=== PATIENT | female | born 1960 | race Two or more races ===

== ENCOUNTER 2016-12-24 21:04 | Emergency (ER) | payer MEDICAID ==
[2016-12-24 21:15] VITALS: BP 152/88
== END 2016-12-25 01:00 | disposition home or self-care (01) ==
LOC: ED 21:04
DX: S81.812A Laceration without foreign body, left lower leg, initial encounter (principal); S90.31XA Contusion of right foot, initial encounter; S80.812A Abrasion, left lower leg, initial encounter; S80.811A Abrasion, right lower leg, initial encounter; I10 Essential (primary) hypertension; E11.9 Type 2 diabetes mellitus without complications; Z88.0 Allergy status to penicillin; W01.10XA Fall on same level from slipping, tripping and stumbling with subsequent striking against unspecified object, initial encounter; Y93.89 Activity, other specified; Y92.89 Other specified places as the place of occurrence of the external cause; Y99.8 Other external cause status
CPT/HCPCS: 90715; J2001

== ENCOUNTER 2018-06-10 17:34 | Inpatient (IN) | payer MEDICAID ==
[~2018-06-10] VITALS: Ht 154.9 cm; Wt 50.0 kg
[2018-06-10 17:45] VITALS: Ht 154.9 cm; Wt 50.0 kg
[2018-06-10 21:07] LABS: BASOPHIL % 0.2 % (0-2); PLATELET COUNT 246 x10^3mcL (130-400); RED CELL DISTRIBUTION WIDTH 12.1 % (11.5-14.5)
[2018-06-10 21:14] LABS: CALCIUM 8.7 mg/dL (8.5-10.1); CARBON DIOXIDE 27.3 mmol/L (21-32); CHLORIDE SERUM 100 mmol/L (98-107); CREATININE SERUM 0.8 mg/dL (0.6-1.0); GFR1 > 60 mL/min; GLUCOSE SERUM 192 mg/dL (74-106); POTASSIUM SERUM 3.5 mmol/L (3.5-5.1); SODIUM SERUM 137 mmol/L (136-145)
[2018-06-10 21:19] LABS: ALKALINE PHOSPHATASE 95 U/L (46-116); ALT/SGPT 39 U/L (14-59); AST/SGOT 23 U/L (15-37); BILIRUBIN TOTAL 0.51 mg/dL (0.20-1.00); TOTAL PROTEIN, SERUM 7.7 g/dL (6.4-8.2)
[2018-06-10 21:58] LABS: microscopic required? NO
[2018-06-10 22:14] LABS: UA SPECIFIC GRAVITY 1.015 (1.005-1.035); urine erythrocyte NEGATIVE (NEGATIVE)
[2018-06-10 22:32] LABS: AMPHETAMINE QUAL UR NONE DETECTED (See below)
[2018-06-10 22:41] VITALS: BP 136/70
[2018-06-10 23:19] LABS: FREE T4 1.19 ng/dL (0.76-1.46); FREE THYROXINE INDEX 3.7 ug/dL (1.4-4.5); T4(THYROXINE) 10.7 ug/dL (4.7-13.3)
[2018-06-10 23:23] LABS: T3 TOTAL 0.9 ng/mL
[2018-06-10 23:26] LABS: CHOLESTEROL/HDL RATIO 3.3; MAGNESIUM 1.8 mg/dL (1.8-2.4); PHOSPHOROUS 3.4 mg/dL (2.5-4.9)
[2018-06-11] MEDS ORDERED: BENAZEPRIL HCL/1 TAB (02:31)
[2018-06-11] MEDS ORDERED: METFORMIN HCL500 MG PO (02:32)
[2018-06-11] MEDS ORDERED: GLUCOTROL10 MG PO (02:32)
[2018-06-11] MEDS ORDERED: PRAVASTATIN SOD10 M1 PO (02:32)
[2018-06-11 05:53] VITALS: BP 112/67
[2018-06-11 06:39] LABS: BASOPHIL % 0.1 % (0-2); PLATELET COUNT 259 x10^3mcL (130-400); RED CELL DISTRIBUTION WIDTH 12.1 % (11.5-14.5)
[2018-06-11 06:48] LABS: ALBUMIN 3.6 g/dL (3.4-5.0); ALKALINE PHOSPHATASE 85 U/L (46-116); ALT/SGPT 35 U/L (14-59); AST/SGOT 18 U/L (15-37); BILIRUBIN TOTAL 0.6 mg/dL (0.20-1.00); CALCIUM 8.9 mg/dL (8.5-10.1); CARBON DIOXIDE 26.7 mmol/L (21-32); CHLORIDE SERUM 103 mmol/L (98-107); CREATININE SERUM 0.7 mg/dL (0.6-1.0); GFR1 > 60 mL/min; GLUCOSE SERUM 135 mg/dL (74-106); MAGNESIUM 1.8 mg/dL (1.8-2.4); PHOSPHOROUS 4.1 mg/dL (2.5-4.9); POTASSIUM SERUM 3.9 mmol/L (3.5-5.1); SODIUM SERUM 137 mmol/L (136-145); TOTAL PROTEIN, SERUM 7.2 g/dL (6.4-8.2)
[2018-06-11 09:58] VITALS: BP 119/68
[2018-06-11 17:31] VITALS: BP 128/65
[2018-06-11 21:04] VITALS: BP 125/70
[2018-06-12] VITALS (7 sets, daily range): BP systolic 116–213; BP diastolic 3–82
[2018-06-12 06:28] LABS: CALCIUM 8.6 mg/dL (8.5-10.1); CARBON DIOXIDE 27.5 mmol/L (21-32); CHLORIDE SERUM 107 mmol/L (98-107); CREATININE SERUM 0.7 mg/dL (0.6-1.0); GFR1 > 60 mL/min; GLUCOSE SERUM 133 mg/dL (74-106); MAGNESIUM 1.9 mg/dL (1.8-2.4); PHOSPHOROUS 3.9 mg/dL (2.5-4.9); POTASSIUM SERUM 3.7 mmol/L (3.5-5.1); SODIUM SERUM 139 mmol/L (136-145)
[2018-06-12 06:41] LABS: BASOPHIL % 0.4 % (0-2); PLATELET COUNT 227 x10^3mcL (130-400); RED CELL DISTRIBUTION WIDTH 12.2 % (11.5-14.5)
[2018-06-13 05:07] VITALS: BP 97/58
[2018-06-13 06:37] LABS: BASOPHIL % 0.5 % (0-2); PLATELET COUNT 230 x10^3mcL (130-400); RED CELL DISTRIBUTION WIDTH 11.9 % (11.5-14.5)
[2018-06-13 06:46] LABS: CALCIUM 8.5 mg/dL (8.5-10.1); CARBON DIOXIDE 28.1 mmol/L (21-32); CHLORIDE SERUM 107 mmol/L (98-107); CREATININE SERUM 0.8 mg/dL (0.6-1.0); GFR1 > 60 mL/min; GLUCOSE SERUM 148 mg/dL (74-106); MAGNESIUM 2.1 mg/dL (1.8-2.4); PHOSPHOROUS 4.2 mg/dL (2.5-4.9); POTASSIUM SERUM 4.1 mmol/L (3.5-5.1); SODIUM SERUM 141 mmol/L (136-145)
[2018-06-13 08:16] VITALS: BP 108/70
[2018-06-13] MEDS ORDERED: MECLIZINE HYDRO25 M1 PO (10:57)
[2018-06-13 11:45] VITALS: BP 121/57
== END 2018-06-13 13:04 | disposition home or self-care (01) | DRG 48 ==
LOC: ED 17:34 → MU 21:42
PROVIDERS: Emergency Medicine; ADMIT Internal Medicine
DX: G90.9 Disorder of the autonomic nervous system, unspecified (principal); E11.65 Type 2 diabetes mellitus with hyperglycemia; E87.2 Acidosis; R11.2 Nausea with vomiting, unspecified; I10 Essential (primary) hypertension; E78.5 Hyperlipidemia, unspecified; Z68.22 Body mass index [BMI] 22.0-22.9, adult
CPT/HCPCS: 82962; 83880; 84439; 97110-GP; 97116-GP; 97530-GP; J2405; J2765; J3490; J7030; J8597; Q0092